=== PATIENT | female | born 1995 | race Caucasian/White ===

== ENCOUNTER → 2019-10-24 | Outpatient (CLI) | payer OTHER ==
--- NOTE | 2019-10-24 18:52 | CONS ---
CONSULTATION DATE OF SERVICE: 10/24/2019 REASON FOR CONSULTATION: This is a 23-year-old lady who has been evaluated for problem with falling asleep and multiple awakenings from sleep. HISTORY OF PRESENT ILLNESS/SLEEP-WAKE EVALUATION: Patient's usual sleep schedule is from 1:00 a.m. until noon and on weekends from 2 a.m. until 11-12 noon. She does have problems with falling asleep. She has a TV set in the bedroom. She usually sleeps on the side position. She denied snoring. She feels some restless leg symptoms while falling asleep and has a lot of kicking and movements during the night. Positive history of sleep talking and sucking thumb at night. No history of hypnagogic hallucinations, sleep paralysis or cataplexy. Orange Sleepiness Scale is 3. Although she may take one nap in the afternoon. Usually feel refreshed after nap. May see vivid dreams during nap. PAST MEDICAL HISTORY: Positive for headaches and depression. SOCIAL HISTORY: Negative for smoking or using alcohol. FAMILY HISTORY: Hypertension, heart problems, hyperlipidemia, polyarthritis, asthma, sinus headaches, snoring, cancer, diabetes, mental illness. REVIEW OF SYSTEMS: Difficulties initiating sleep with multiple awakenings from sleep, headaches. PHYSICAL EXAM: lady without distress. BP 115/74, HR 93, RR 14, height 5 feet 6 inches, weight 144.8. Temperature 98.1, body mass index 23.2, oxygen saturation at room air 99%. HEENT: PERRLA, EOMI, evaluation of oropharynx showed tongue protrudes midline. Oropharynx Mallampati 2. NECK: Supple, no JVD. Thyroid is not palpable. Neck is 13 inches in circumference. LUNGS: Clear to percussion and to auscultation. Good air exchange. No wheezing or rhonchi. HEART: S1, S2 regular. No murmurs, gallops, or rubs. ABDOMEN: Soft and nontender. Bowel sounds are present. No organomegaly appreciated. EXTREMITIES: No clubbing or cyanosis. ASBESTOS ABATEMENT TECHNICIAN: Awake, alert, and oriented X3. Cranial nerves 2 to 7 intact. There is no fasciculation or atrophy. noted. No focal deficits observed. IMPRESSION: 1. Significant amount of movements during sleep, kicking, periodic limb movements syndrome. 2. Restless leg symptoms. 3. Difficulties initiating sleep. Psychophysiological insomnia. 4. Sleep delay syndrome. 5. Headaches. 6. History of depression. PLAN: 1. Polysomnography for evaluation of patient movements at night and also to check for breathing during sleep. 2. Sleep hygiene with regular time in bed for 7-1/2 to 8 hours. 3. As much as possible, bright light exposure in the mornings with a goal to move sleep cycle earlier. 4. Stimulus control. Avoid using bedroom for any other reasons except sleep or sex. 5. Precautions related to driving. No driving if feeling any sleepiness. 6. Following plan after reviewing results of sleep study. Thank you very much for referring this patient for consultation. MMODL / IJN: [id number] /
== END | disposition home or self-care (01) ==
LOC: SLEEP 16:46
PROVIDERS: ATTEND Internal Medicine
DX: G47.61 Periodic limb movement disorder (principal); G47.21 Circadian rhythm sleep disorder, delayed sleep phase type; F51.04 Psychophysiologic insomnia; R51 Headache; Z86.59 Personal history of other mental and behavioral disorders
CPT/HCPCS: 99211

== ENCOUNTER 2020-09-01 11:52 | Day surgery (SDC) | payer OTHER ==
--- NOTE | 2020-09-01 08:02 | P.HPOR ---
History of Present Illness H&P Date: 09/01/20 Chief Complaint: Left wrist pain The patient is a 24-year-old [id number] female who presents after injuring her left wrist on 08/23/2020 with persistent pain. She herself rollerblading. Initially she underwent closed reduction of her left wrist fracture, however upon follow-up she was noted to have increasing displacement of the radial styloid fragment. Review of Systems Musculoskeletal: Reports as per HPI Medications and Allergies Allergies Allergy/AdvReac Type Severity Reaction Status Date / Time penicillin G Allergy Unknown Verified 09/01/20 06:42 Physical Examination - Fracture left wrist Appearance: swelling (Moderate dorsal swelling) Compartments: soft Distal extremity neurovascularly intact: Yes Proximal joint involvement: No Distal joint involvement: No Results Well-developed well-nourished female in no acute distress Nontender about the cervical, thoracic, and lumbar spine Nontender left shoulder and elbow Left upper extremity sugar tong splint in place Light touch intact left digits Fires left FDP/FDS/EDC/EPL/FPL Capillary refill less than 2 seconds left digits - Diagnostic results Wrist/Hand x-ray: image reviewed (Left intra-articular distal radius fracture with 2-3 mm displacement of the radial styloid fragment) Assessment and Plan Assessment: Left intra-articular distal radius fracture3 partmild displacement Plan: I talked to the patient regarding her condition along with treatment options. At this point will plan to proceed with closed reduction and percutaneous pinning of her left intra-articular distal radius fracture. We will likely perform as an outpatient procedure utilizing general anesthesia. Risks and benefits were discussed at length in layman's terms. Time with Patient: Greater than 30
[2020-09-01] MEDS ORDERED: ONDANSETRON 4 MG/2 ML VIAL ONE (12:49)
[2020-09-01] MEDS ORDERED: DEXAMETHASONE SOD PHOSPHATE 4 MG/ML 1 ML VIAL IVP ONE (12:51)
[2020-09-01] MEDS ORDERED: LACTATED RINGERS 1,000 ML IV ONE ×2 (12:58)
[2020-09-01] MEDS ORDERED: fentaNYL (PF) 50 MCG/ML 2 ML AMP IVP ONE (13:08)
[2020-09-01] MEDS ORDERED: MIDAZOLAM 2 MG/2 ML VIAL IVP ONE (13:08)
--- NOTE | 2020-09-01 13:19 | P.ANPRN ---
Procedure Note - Anesthesia - Nerve Block Performed Left Supraclavicular Single Time Out Performed: Yes Date of Procedure: 09/01/20 Procedure Start Time: 13:07 Procedure Stop Time: 13:13 Location of Patient: PreOp Indication: Requested by Surgeon Specifically requested for management of pain by DrAnselmo: Zelalem Newberry Sedation Type: Sedate with meaningful contact maintained Preparation: Sterile Prep Position: Supine Needle Types: Pajunk Needle Gauge: 21 Ultrasound used to visualize needle placement: Yes Ultrasound used to observe medication spread: Yes Injectate: 0.5% Ropivacaine (see comment for volume) (20 ml plus dexamethason 4 mg) Blood Aspirated: No Pain Paresthesia on Injection Noted: No Resistance on Injection: Normal Image Stored and Saved: Yes Events: Uneventful and Well Tolerated
[2020-09-01] MEDS ORDERED: MIDAZOLAM 2 MG/2 ML VIAL ONE (14:03)
[2020-09-01] MEDS ORDERED: fentaNYL (PF) 50 MCG/ML 2 ML AMP ONE (14:03)
[2020-09-01] MEDS ORDERED: DEXAMETHASONE SOD PHOSPHATE 4 MG/ML 1 ML VIAL ONE (14:03)
[2020-09-01] MEDS ORDERED: LIDOCAINE 1% INJ 10MG/ML (20 ML MDV) ONE (14:03)
[2020-09-01] MEDS ORDERED: ROPIVACAINE 5 MG/ML 30 ML VIAL ONE (14:03)
[2020-09-01] MEDS ORDERED: PROPOFOL 10 MG/ML 20 ML VIAL IV ONE (14:03)
[2020-09-01] MEDS ORDERED: PHENYLEPHRINE-0.9% NACL SYG 1,000 MCG/10 ML SYRINGE ONE (14:03)
[2020-09-01] MEDS ORDERED: CLINDAMYCIN 150 MG/ML 4 ML VIAL IVPB ONE (14:10)
--- NOTE | 2020-09-01 14:58 | P.OP ---
Date of Procedure: 09/01/20 Preoperative Diagnosis: Displaced left intra-articular distal radius fracture3 part Postoperative Diagnosis: Same Procedure(s) Performed: Closed reduction with percutaneous pinning left intra-articular distal radius fracture3 part Implants: 0.062 inch K wire 2, 0.054 inch K wire 1 Anesthesia: GETA Surgeon: Zelalem Newberry Product Marketing Specialist #1: Alejo White Estimated Blood Loss (ml): 2 Pathology: none sent Condition: stable Disposition: PACU Indications for Procedure: The patient's a 24-year-old [id number] female who presents after falling injuring her left wrist approximately a week and a half ago with increasing displacement of her intra-articular distal radius fracture. A discussion of the risks and benefits of operative intervention was made with patient. She opted to proceed. Specific risks of this procedure to include infection, neurovascular injury, development of malunion/nonunion, and probable need for hardware removal was discussed. Informed consent was obtained. Operative Findings: as below Description of Procedure: The patient was brought to the operating room, and after induction of general anesthesia the left upper extremity was prepped and draped in normal fashion. Fluoroscopy was used to aid in reduction of the fracture. Longitudinal traction and radial deviation is performed. 2 K wires measuring 0.062 inch in diameter were placed and the radial styloid spent fracture site proximal. Again this was done with the aid of fluoroscopy. A 0.054 inch K wire was then placed from the radial styloid to the lunate facet fragment. I felt this point I had adequate reduction of the joint surface and overall good alignment. The K wires were clipped below the level of the skin. A sterile dressing was applied in addition to a sugar tong splint. The patient was then awoken from general anesthesia and transferred to the recovery room in good condition. Blood loss was estimated 2 mL. No complications were incurred.
[2020-09-01 15:10] VITALS: TEMP 97.3
[2020-09-01] MEDS ORDERED: HYDROmorphone 0.5 MG/0.5 ML SYRINGE IVP ONE (15:29)
[2020-09-01 15:33] VITALS: RESP 16
--- NOTE | 2020-09-01 15:50 | FL ---
Fluoroscopy HISTORY: Wrist fracture 1 minute 52 seconds fluoroscopy time supplied to the referring clinician. 3 intraoperative C-arm im ages document the procedure. See dictated report from orthopedic surgery.
[2020-09-01 16:14] VITALS: BP 101/62; PULSE 100
== END 2020-09-01 16:35 | disposition home or self-care (01) ==
LOC: OR 11:52
PROVIDERS: ATTEND Orthopaedic Surgery
DX: S52.572K Other intraarticular fracture of lower end of left radius, subsequent encounter for closed fracture with nonunion (principal); W18.30XD Fall on same level, unspecified, subsequent encounter; V00.11 In-line roller-skate accident; Z88.0 Allergy status to penicillin; Z88.1 Allergy status to other antibiotic agents; Z79.1 Long term (current) use of non-steroidal anti-inflammatories (NSAID); Z79.899 Other long term (current) drug therapy
CPT/HCPCS: 25400; 25606; 81025; 64415; 76942; 73100; C1713 ×2; J2250; J1100; J2405; J2001; J3010; J2795; J2370; J2704; J1170

== ENCOUNTER 2020-10-30 08:30 | Day surgery (SDC) | payer OTHER ==
[2020-10-27 17:42] VITALS: BMI 22.6
--- NOTE | 2020-10-29 17:39 | HP ---
HISTORY AND PHYSICAL CHIEF COMPLAINT: Left wrist pain. HISTORY OF PRESENT ILLNESS: The patient is a 24-year-old [id number] female who presents after undergoing closed reduction and percutaneous pinning of a left intraarticular distal radius fracture in August of this year. She presents with persistent pain about her hardware. Clinically she is noted to have healed her fracture. PAST MEDICAL HISTORY: Negative. PAST SURGICAL HISTORY: Significant for closed reduction and pinning of the left wrist radius fracture. CURRENT MEDICATIONS: Amitriptyline. ALLERGIES: She has allergies to PENICILLIN. FAMILY HISTORY: Significant for cancer. SOCIAL HISTORY: Negative for current tobacco or alcohol use. REVIEW OF SYSTEMS: Sixteen-point review of systems is otherwise reviewed and is noncontributory. PHYSICAL EXAMINATION: On examination, the patient is approximately 5 feet 6 inches, 140 pounds of mesomorphic habitus. HEENT exam is nonfocal. Neck is supple. She is nontender about the left shoulder and elbow. She has full pronation and supination of her left forearm. On examination of her left wrist, she is nontender over the distal radius. She is tender about the palpable hardware over the radial styloid. Her distal neurovascular exam is intact to the left upper extremity. Previous x-rays of the left wrist obtained in the office show intraarticular distal radius fracture in good alignment. IMPRESSION: 1. Status post closed reduction and pinning of left intraarticular distal radius fracture. 2. Irritating hardware, left wrist. RECOMMENDATIONS: I talked to the patient at length regarding her condition and treatment options. At this point we will plan to proceed with removal of her retained hardware/K-wires in her left wrist. We will likely perform that as an outpatient procedure utilizing local anesthetic and IV sedation. Risks and benefits were discussed at length in layman's terms. MMODL / IJN: [id number] /
[~2020-10-30 08:30] MED LIST: CLINDAMYCIN 900 MG in DEXTROSE 5% IN WATER 50 ML IVPB PRN; DEXAMETHASONE SOD PHOSPHATE 4 MG/ML 1 ML VIAL IV ONE; HYDROmorphone 0.5 MG/0.5 ML SYRINGE IVP PRN; LACTATED RINGERS 1,000 ML IV SCH; LIDOCAINE 1% (10MG/ML) FOR IV START INTRADERMA PRN; MIDAZOLAM 2 MG/2 ML VIAL IV PRN; ONDANSETRON 4 MG/2 ML VIAL IVP ONE
[2020-10-30 09:01] VITALS: TEMP 97.8
[2020-10-30] MEDS ORDERED: KETAMINE 10 MG/ML 20 ML VIAL ONE (09:43)
[2020-10-30] MEDS ORDERED: MIDAZOLAM 2 MG/2 ML VIAL ONE (09:43)
[2020-10-30] MEDS ORDERED: PROPOFOL 10 MG/ML 20 ML VIAL IV ONE (09:43)
[2020-10-30] MEDS ORDERED: fentaNYL (PF) 50 MCG/ML 2 ML AMP ONE (09:43)
[2020-10-30] MEDS ORDERED: BUPIVACAINE (PF) 0.25% 30 ML VIAL SQ ONE (09:47)
--- NOTE | 2020-10-30 10:08 | P.OP ---
Date of Procedure: 10/30/20 Preoperative Diagnosis: Irritating hardware left wrist status post percutaneous pinning distal radius fracture Postoperative Diagnosis: Same Procedure(s) Performed: Pin removal left distal radius Anesthesia: MAC, local Surgeon: Zelalem Newberry Estimated Blood Loss (ml): 1 Pathology: none sent Condition: stable Disposition: PACU Indications for Procedure: Patient is a 24-year-old female who underwent closed reduction and pinning of a left intra-articular discharge fracture recently who presents with irritation over the pin sites. Clinically she was noted to have united the fracture. A discussion the risks and benefits of removal was made with patient. She opted to proceed. Informed consent was obtained. Operative Findings: as below Description of Procedure: Patient brought to the operating room, and after induction of IV sedation the left upper extremity was prepped and draped in normal fashion. The proposed incision site was injected with 4 mL of quarter percent plain Marcaine. 2 small separate stab incisions were then made. Skin was incised sharply. Subcutaneous tissues were divided bluntly. 3 K wires were easily removed. The wounds were irrigated normal saline. The skin was reapproximated with Steri-Strips. A sterile dressing was applied. The patient was awoken from sedation and transferred to recovery room in good condition. Blood loss was estimated at 1 mL. No complications were incurred.
[2020-10-30] MEDS ORDERED: IBUPROFEN 200 MG TAB PO ONE ×2 (10:38)
[2020-10-30 10:52] VITALS: BP 114/77; PULSE 81; RESP 16
== END 2020-10-30 11:04 | disposition home or self-care (01) ==
LOC: OR 08:30
PROVIDERS: ATTEND Orthopaedic Surgery
DX: T84.84XA Pain due to internal orthopedic prosthetic devices, implants and grafts, initial encounter (principal); Y83.8 Other surgical procedures as the cause of abnormal reaction of the patient, or of later complication, without mention of misadventure at the time of the procedure; Z88.0 Allergy status to penicillin; Z79.899 Other long term (current) drug therapy; Z88.1 Allergy status to other antibiotic agents
CPT/HCPCS: 81025; 20680; J2250; J1100; J2405; J3010; J2704